=== PATIENT | male | born 1980 | race Caucasian/White ===

== ENCOUNTER 2017-02-16 04:44 | Emergency (ER) | payer OTHER ==
[~2017-02-16 04:44] MED LIST: ANXIETY MED; BLOOD PRESSURE MED
== END 2017-02-16 06:00 | disposition home or self-care (01) ==
LOC: CED 04:44
DX: L55.9 Sunburn, unspecified (principal); F17.200 Nicotine dependence, unspecified, uncomplicated
CPT/HCPCS: 99284

== ENCOUNTER 2017-03-05 22:09 | Emergency (ER) | payer OTHER ==
--- NOTE | ~2017-03-05 | US115 ---
[facility] A Service of [facility] RADIOLOGY TEXT RESULTS PATIENT: KG ALBA LOCATION: [facility] : 82 UNIT #: [id number] AGE: [address]: Arnav Jackson DO SEX: M ORDER DR: [id number] [facility] [address] [place], [place] [address] [id number] MR#: [id number] Acc #: [id number] NAME: KG ALBA. : 1980 SEX: M STUDY DATE/TIME: 03/05/2017 22:40 UNIT: DANIEL ROOM: STUDY DESCRIPTION: US Scrotum and Contents Attending Physician: Arnav Jackson D.O. Ordering Physician: Arnav Jackson D.O. Primary Care Physician: Primary Care Physician No MEDICAL IMAGING REPORT This report is preliminary unless electronic signature is present EXAM Scrotal ultrasound with Doppler HISTORY Scrotal pain for 1 day. FINDINGS Ultrasound examination of the scrotum and testes was performed with carter-scale and Doppler. There is a 9 mm right epididymal head cyst, similar to ultrasound 01/11/2016. No testicular mass or enlargement. Normal blood flow to both testes on color Doppler. Bilateral epididymal enlargement, with mildly increased vascularity on Doppler suggesting epididymitis. IMPRESSION 1. No testicular mass or enlargement. 2. Normal blood flow to both testes on color Doppler. 3. Mild epididymal enlargement with hypervascularity bilaterally suggesting epididymitis. Correlation to the patient's symptoms is recommended. Dictated by... Mckay Schuler M.D. THIS IS AN ELECTRONICALLY VERIFIED REPORT Mckay Schuler M.D. at 03/06/2017 11:27 PM DFL/jad TD: 03/06/2017 03:23 JOB #: [id number] [facility] A Service of [facility] RADIOLOGY TEXT RESULTS PATIENT: KG ALBA LOCATION: [facility] : 82 UNIT #: [id number] AGE: [address]: Arnav Jackson DO SEX: M ORDER DR: MEDICAL IMAGING REPORT Page 1 of 1 COPY
[2017-03-05 23:37] LABS: URINE SOURCE CLEAN CATCH
[2017-03-05 23:47] LABS: URINE APPEARANCE CLEAR; URINE BILIRUBIN NEG (NEG); URINE BLOOD NEG (NEG); URINE COLOR YELLOW; URINE GLUCOSE NEG (NEG); URINE KETONE TRACE (NEG); URINE LEUKOCYTE ESTERASE NEG (NEG); URINE NITRATE NEG (NEG); URINE PH 5.5 (5-8); URINE PROTEIN TRACE (NEG); URINE SPECIFIC GRAVITY 1.032 (1.003-1.035)
[2017-03-05 23:51] LABS: CULTURE INDICATED? NO
[2017-03-09 08:57] LABS: CHLAMYDIA TRACH Not Detected (Not Detected); N GONOR Not Detected (Not Detected)
== END 2017-03-06 01:05 | disposition home or self-care (01) ==
LOC: CED 22:09
PROVIDERS: Emergency Medicine
DX: N45.1 Epididymitis (principal); I10 Essential (primary) hypertension; F41.9 Anxiety disorder, unspecified; F17.200 Nicotine dependence, unspecified, uncomplicated
CPT/HCPCS: 76870; 81003; 87491; 87591; 96372; 99284; J1885